=== PATIENT | female | born 1940 | race Caucasian/White ===

== ENCOUNTER 2017-01-12 12:23 | Emergency (ER) | payer OTHER ==
[2017-01-12 12:37] VITALS: BP 155/83; PULSE 72; TEMP 98.2; BMI 21.9
[2017-01-12 12:44] LABS: EOSINOPHIL 1.3 % (0-4.5); MCH 33.5 pg (25.7-33.7); MCHC 34.8 g/dl (32.0-36.0); MEAN CELL VOLUME 96.2 fl (80-96); MEAN PLT VOLUME 8.4 fl (7.5-11.1); NEUTROPHILS 73.3 % (42.8-82.8); PLATELET COUNT 245 K/MM3 (134-434); RDW 12.7 % (11.6-15.6); WHITE BLOOD COUNT 6.6 K/mm3 (4.0-10.8)
[2017-01-12 13:03] LABS: ALBUMIN 4.3 g/dl (3.5-5.0); ALK PHOS 57 U/L (32-92); ANION GAP 8 (8-16); BILIRUBIN,TOTAL 0.6 mg/dl (0.2-1.0); CALCIUM 9.3 mg/dl (8.4-10.2); CO2 25 mmol/L (22-28); CREATININE 0.6 mg/dl (0.6-1.3); GLUCOSE,RANDOM 100 mg/dl (74-106); SGOT/AST 31 U/L (10-42); SGPT/ALT 18 U/L (10-40); TOT PROT 6.8 g/dl (6.4-8.3)
[2017-01-12 13:04] LABS: CPK(DFH) 179 IU/L (26-140)
[2017-01-12 13:05] LABS: COCKROFT - GAULT NT
--- NOTE | 2017-01-12 14:08 | PDOC ---
History of Present Illness <Silver Turner - Last Filed: 01/12/17 14:08> - General History Source: Patient, Family Exam Limitations: No Limitations - History of Present Illness Initial Comments: 01/12/17 14:20 CHIEF COMPLAINT: Syncope with head injury HISTORY OF PRESENT ILLNESS: Patient is a 76-year-old woman who was at home today. She has occasional episodes of swallowing difficulty where things get stuck on the way down. Today she ate a piece of bread that started to get stuck in her esophagus. She went to drink some water to help the food go down, and she started to feel lightheaded. She had a syncopal episode and hit her head on the tile floor. There was a brief transient loss of consciousness. Her daughter is a physician and was present with her. The loss of consciousness was more of a period of confusion for a few seconds. The patient was never unresponsive. She does not take any aspirin and no anticoagulation. She is currently feeling well. She has a slight bump on the back of her head. Her swallowing function is normal. There was no chest pain, shortness of breath , diaphoresis, or vomiting. This has happened to her before with a vagal reaction in the setting of swallowing dysfunction. REVIEW OF SYSTEMS: GENERAL/CONSTITUTIONAL: No fever or chills. No weakness. No weight change. HEAD, EYES, EARS, NOSE AND THROAT: No change in vision. No ear pain or discharge. No sore throat. Positive for lump on the back of the head, but no headache. CARDIOVASCULAR: No chest pain or shortness of breath. Positive history of hypertension. RESPIRATORY: No cough, wheezing, or hemoptysis. GASTROINTESTINAL: No nausea, vomiting, diarrhea or constipation. No rectal bleeding. Has occasional swallowing dysfunction where food gets stuck on the way down. GENITOURINARY: No dysuria, frequency, or change in urination. MUSCULOSKELETAL: No joint or muscle swelling or pain. No neck or back pain. SKIN AND BREASTS: No rash or easy bruising. NEUROLOGIC: No headache, vertigo, loss of consciousness, or loss of sensation. PSYCHIATRIC: No depression or anxiety. ENDOCRINE: No increased thirst. No abnormal weight change. HEMATOLOGIC/LYMPHATIC: No anemia, easy bleeding, or history of blood clots. ALLERGIC/IMMUNOLOGIC: No hives or skin allergy. No latex allergy. <Tj Antonio - Last Filed: 01/12/17 14:28> - General Chief Complaint: Syncope/Near Syncope Stated Complaint: SYNCOPE Time Seen by Provider: 01/12/17 12:25 Past History <Silver Turner - Last Filed: 01/12/17 14:08> - Past Medical History HTN: Yes - Psycho/Social/Smoking Cessation Hx Suicidal Ideation: No Smoking History: Never smoked Hx Alcohol Use: No Drug/Substance Use Hx: No Substance Use Type: None <Tj Antonio - Last Filed: 01/12/17 14:28> - Past Medical History Allergies/Adverse Reactions: Allergies Allergy/AdvReac Type Severity Reaction Status Date / Time No Known Allergies Allergy Verified 01/12/17 12:24 Home Medications: Ambulatory Orders Enalapril Maleate [Vasotec] 10 mg PO DAILY 01/12/17 *Physical Exam - Vital Signs Last Vital Signs Temp Pulse Resp BP Pulse Ox 98.2 F 72 17 155/83 100 01/12/17 12:24 01/12/17 12:24 01/12/17 12:24 01/12/17 12:24 01/12/17 12:24 <Silver Turner - Last Filed: 01/12/17 14:08> - Vital Signs Last Vital Signs Temp Pulse Resp BP Pulse Ox 98.2 F 72 17 155/83 100 01/12/17 12:24 01/12/17 12:24 01/12/17 12:24 01/12/17 12:24 01/12/17 12:24 - Physical Exam Comments: 01/12/17 14:23 GENERAL: The patient is awake, alert, and fully oriented, in no acute distress. HEAD: Scalp with small area of swelling over the mid occiput posteriorly. No abrasions. No laceration. EYES: Pupils equal, round and reactive to light, extraocular movements intact, sclera anicteric, conjunctiva clear. ENT: Ears normal, nares patent, oropharynx clear without exudates. Moist mucous membranes. NECK: Normal range of motion, supple without lymphadenopathy, JVD, or masses. No cervical spine tenderness. No pain on range of motion. LUNGS: Breath sounds equal, clear to auscultation bilaterally. No wheezes, and no crackles. HEART: Regular rate and rhythm, normal S1 and S2 without murmur, rub or gallop. ABDOMEN: Soft, nontender, normoactive bowel sounds. No guarding, no rebound. No masses. EXTREMITIES: Normal range of motion, no edema. No clubbing or cyanosis. No cords, erythema, or tenderness. NEURO: Mental status: The patient is oriented x3. Cranial nerves: Cranial nerves are intact. Motor: The upper extremities are 5 over 5 in all muscle groups. The lower extremities are 5 over 5 in all muscle groups. Sensation: Sensation is intact to light touch throughout. Cerebellar: [id number] is normal in both upper extremities. Reflexes: 2+ and symmetric in the upper and lower extremities. Gait: Normal. PSYCH: Normal mood, normal affect. SKIN: Warm, Dry, normal turgor, no rashes or lesions noted. <Tj Antonio - Last Filed: 01/12/17 14:28> Heart Score/ECG Review - ECG Intrepretation Comment:: 01/12/17 14:25 Twelve-lead EKG shows normal sinus rhythm at a rate of 72 bpm. The axis is normal. The intervals are normal. There are no ST elevations or depressions. There are no abnormal T waves. Impression: Normal 12-lead EKG. <Tj Antonio - Last Filed: 01/12/17 14:28> ED Treatment Course - LABORATORY CBC & Chemistry Diagram: 01/12/17 12:37 01/12/17 12:37 - ADDITIONAL ORDERS Additional order review: Laboratory Results 01/12/17 01/12/17 12:37 12:37 Sodium 137 Potassium 4.4 Chloride 104 Carbon Dioxide 25 Anion Gap 8 BUN 21 H Creatinine 0.6 Creat Clearance w eGFR > 60 Random Glucose 100 Calcium 9.3 Total Bilirubin 0.6 AST 31 ALT 18 Alkaline Phosphatase 57 Creatine Kinase 179 H Total Protein 6.8 Albumin 4.3 01/12/17 12:37 RBC 3.90 MCV 96.2 H MCHC 34.8 RDW 12.7 MPV 8.4 Neutrophils % 73.3 Lymphocytes % 14.1 Monocytes % 10.3 H Eosinophils % 1.3 Basophils % 1.0 - RADIOLOGY Radiology Studies Ordered: 01/12/17 14:08 CHEST PA& LAT Impression: No acute pathology. Suggest direct visualization and an esophagram for more complete evaluation in view of history. Reported by Barrett Soriano HEAD CT WITHOUT CONTRAST Impression: No acute bleed or fracture. No CT evidence of acute infarct Reported by Sebastián Wells <Silver Turner - Last Filed: 01/12/17 14:08> - LABORATORY CBC & Chemistry Diagram: 01/12/17 12:37 01/12/17 12:37 - ADDITIONAL ORDERS Additional order review: Laboratory Results 01/12/17 01/12/17 12:37 12:37 Sodium 137 Potassium 4.4 Chloride 104 Carbon Dioxide 25 Anion Gap 8 BUN 21 H Creatinine 0.6 Creat Clearance w eGFR > 60 Random Glucose 100 Calcium 9.3 Total Bilirubin 0.6 AST 31 ALT 18 Alkaline Phosphatase 57 Creatine Kinase 179 H Total Protein 6.8 Albumin 4.3 01/12/17 12:37 RBC 3.90 MCV 96.2 H MCHC 34.8 RDW 12.7 MPV 8.4 Neutrophils % 73.3 Lymphocytes % 14.1 Monocytes % 10.3 H Eosinophils % 1.3 Basophils % 1.0 - RADIOLOGY Radiology Studies Ordered: Category Date Time Status HEAD CT WITHOUT CONTRAST [CT] Stat CT Scan 01/12/17 12:29 Completed CHEST PA & LAT [RAD] Stat Radiology 01/12/17 12:29 Completed <Tj Antonio - Last Filed: 01/12/17 14:28> Medical Decision Making - Medical Decision Making 01/12/17 14:26 Patient is a 76-year-old woman who presents with a vasovagal syncope episode in the setting of food getting stuck while swallowing. The food went down and she is now drinking water without difficulty. Her daughter who is a physician was concerned because she hit her head with transient loss of consciousness. The vagal episodes are not unusual for her, but the head trauma is not something which has occurred before. On examination, neurological and cardiovascular examination are normal. The remainder of the physical exam is also normal. Patient is awake and alert and fully interactive. She denies any headache. CT scan of the head was negative. Patient does not take aspirin or other anticoagulants. Laboratory Tests 01/12/17 01/12/17 01/12/17 12:37 12:37 12:37 WBC 6.6 RBC 3.90 Hgb 13.1 Hct 37.5 MCV 96.2 H MCHC 34.8 RDW 12.7 Plt Count 245 MPV 8.4 Neutrophils % 73.3 Lymphocytes % 14.1 Monocytes % 10.3 H Eosinophils % 1.3 Basophils % 1.0 Sodium 137 Potassium 4.4 Chloride 104 Carbon Dioxide 25 Anion Gap 8 BUN 21 H Creatinine 0.6 Creat Clearance w eGFR > 60 Random Glucose 100 Calcium 9.3 Total Bilirubin 0.6 AST 31 ALT 18 Alkaline Phosphatase 57 Creatine Kinase 179 H CK-MB (CK-2) 4.2 H Troponin I < 0.03 L Total Protein 6.8 Albumin 4.3 Laboratory studies are all unremarkable. The troponin is negative. The increased CK is likely from the fall. There is no suspicion for an acute cardiac event. Impression: Head trauma with brief loss of consciousness. Skin with scalp contusion. Vasovagal syncope episode. Patient is stable for discharge. <Tj Antonio - Last Filed: 01/12/17 14:28> *DC/Admit/Observation/Transfer - Attestations Scribe Attestion: 01/12/17 14:10 Documentation prepared by Silver Turner, acting as medical practice assistant for Tj Antonio MD <Silver Turner - Last Filed: 01/12/17 14:08> - Discharge Dispostion Admit: No <Tj Antonio - Last Filed: 01/12/17 14:28> Diagnosis at time of Disposition: Scalp contusion Qualifiers: Encounter type: initial encounter Qualified Code(s): S00.03XA - Contusion of scalp, initial encounter - Discharge Dispostion Disposition: HOME Condition at time of disposition: Stable - Patient Instructions Printed Discharge Instructions: DI for Syncope in Adults (Fainting) Additional Instructions: You were evaluated today for passing out and hitting your head. The lab tests and the CT scan of the head were all ok. The chest x-ray was also good. Rest at home for the rest of the day. Follow up with your doctor. Return to the ER for any serious symptoms.
[2017-01-12 14:15] LABS: TROPONIN I (DFP) < 0.03 ng/ml (0.03-0.50)
[2017-01-12 14:16] LABS: CK MB 4.2 ng/ml (0.3-4.0)
--- NOTE | 2017-01-12 16:06 | EKG ---
Test Reason : Blood Pressure : / mmHG Vent. Rate : 072 BPM Atrial Rate : 072 BPM P-R Int : 166 ms QRS Dur : 086 ms QT Int : 394 ms P-R-T Axes : 065 055 038 degrees QTc Int : 431 ms NORMAL SINUS RHYTHM NORMAL ECG NO PREVIOUS ECGS AVAILABLE Confirmed by MIRZA CASAS MD ([id number] on 01/12/2017 4:05:50 PM Referred By: MEL NORTH Confirmed By:MIRZA CASAS MD
== END 2017-01-12 14:29 | disposition home or self-care (01) ==
LOC: FER 12:23
DX: S00.03XA Contusion of scalp, initial encounter (principal); W18.39XA Other fall on same level, initial encounter; Y93.89 Activity, other specified; Y92.9 Unspecified place or not applicable
CPT/HCPCS: 36415; 70450-TC; 71020-TC; 80053; 82550; 82553; 84484; 85025; 93005; 99284-25

== ENCOUNTER → 2021-04-24 | Day surgery (SDC) | payer OTHER, MEDICARE | END | disposition home or self-care (01) | LOC: FRADUS-SUR 11:15 → FRADUS 11:15 → EDSTATUS 11:30 | PROVIDERS: ATTEND Internal Medicine | PROC: 0HBT3ZX Excision of Right Breast, Percutaneous Approach, Diagnostic (ICD-10-PCS; principal; 2021-04-24) | DX: D05.11 Intraductal carcinoma in situ of right breast (principal); N64.89 Other specified disorders of breast; N63.13 Unspecified lump in the right breast, lower outer quadrant | CPT/HCPCS: 19083; 76641-TC-50; 77065-TC; 87899; 88305-TC; 88341-TC; 88342-TC; A4648 ==

== ENCOUNTER 2022-03-29 14:07 | Inpatient (IN) | payer OTHER, MEDICARE ==
[2022-03-29] MEDS ORDERED: SODIUM CHLORIDE 500 ML IV STA (14:47)
[2022-03-29] MEDS ORDERED: METOPROLOL TARTRATE 5 MG/5 ML VIAL IVPUSH ONE ×2 (14:47→15:45)
[2022-03-29 15:00] LABS: INR 1.04 (0.83-1.09)
[2022-03-29 15:01] LABS: HEMATOCRIT 31.7 % (32.4-45.2); HEMOGLOBIN 11.2 G/dL (10.7-15.3); MCH 34.4 pg (25.7-33.7); MCHC 35.4 g/dl (32.0-36.0); MEAN CELL VOLUME 97.3 fl (80-96); MEAN PLT VOLUME 7.9 fl (7.5-11.1); PLATELET COUNT 244.2 10^3/uL (134-434); RBC 3.26 10^6/uL (3.60-5.2); WHITE BLOOD COUNT 5.1 10^3/uL (4.0-10.8)
[2022-03-29 15:03] LABS: ACTIVATED PTT 32.7 SECONDS (25.2-36.5)
[2022-03-29 15:08] LABS: ALBUMIN 3.5 g/dl (3.4-5.0); BILIRUBIN,TOTAL 0.6 mg/dl (0.2-1); CALCIUM 9.4 mg/dl (8.5-10); CREATININE 0.6 mg/dl (0.55-1.3); TOT PROT 6.1 g/dl (6.4-8.2)
[2022-03-29] MEDS ORDERED: METOCLOPRAMIDE HCL INJECTION 10 MG/2 ML VIAL ONE (15:17)
[2022-03-29] MEDS ORDERED: METOPROLOL TARTRATE 25 MG TABLET (FP) PO ONE (15:45)
[2022-03-29] MEDS ORDERED: ACETAMINOPHEN 1000 MG/100 ML BAG IVPB ONE (15:47)
[2022-03-29] MEDS ORDERED: ACETAMINOPHEN INJECTION 100 ML IVPB ONE (15:54)
[2022-03-29] MEDS ORDERED: METOPROLOL TARTRATE 25 MG TABLET (FP) ONE (15:54)
[2022-03-29 16:30] LABS: N-TERMINAL BNP 661.9 pg/ml (5-450)
[2022-03-29 17:58] VITALS: BMI 24.6
[2022-03-29] MEDS: SOTALOL HCL 80 MG TABLET (FP) PO SCH (22:11)
[2022-03-29] MEDS: MELATONIN 5 MG TABLETS PO SCH (22:11)
[2022-03-29] MEDS: APIXABAN 5 MG TABLET PO SCH (22:11)
[2022-03-30 08:28] LABS: MAGNESIUM 2.1 mg/dL (1.8-2.4)
[2022-03-30] MEDS: SOTALOL HCL 80 MG TABLET (FP) PO SCH ×2 (10:02→21:26)
[2022-03-30] MEDS: EZETIMIBE 10 MG TABLET (FP) PO SCH (10:02)
[2022-03-30] MEDS: APIXABAN 5 MG TABLET PO SCH ×2 (10:02→21:26)
[2022-03-30] MEDS: LETROZOLE 2.5 MG TABLET (FP) PO SCH (12:11)
[2022-03-30] MEDS: MELATONIN 5 MG TABLETS PO SCH (21:26)
[2022-03-31] MEDS: APIXABAN 5 MG TABLET PO SCH ×2 (09:07→22:16)
[2022-03-31] MEDS: SOTALOL HCL 80 MG TABLET (FP) PO SCH ×2 (09:07→22:15)
[2022-03-31] MEDS: EZETIMIBE 10 MG TABLET (FP) PO SCH (09:07)
[2022-03-31] MEDS: LETROZOLE 2.5 MG TABLET (FP) PO SCH (09:51)
[2022-03-31] MEDS: MELATONIN 5 MG TABLETS PO SCH (22:16)
[2022-04-01] MEDS: EZETIMIBE 10 MG TABLET (FP) PO SCH (09:01)
[2022-04-01] MEDS: APIXABAN 5 MG TABLET PO SCH ×2 (09:01→22:32)
[2022-04-01] MEDS: SOTALOL HCL 80 MG TABLET (FP) PO SCH ×2 (09:01→22:33)
[2022-04-01] MEDS: LETROZOLE 2.5 MG TABLET (FP) PO SCH (09:01)
[2022-04-01] MEDS ORDERED: ACETAMINOPHEN 325 MG TABLET (FP) PO ONE (22:00)
[2022-04-01] MEDS: MELATONIN 5 MG TABLETS PO SCH (22:33)
[2022-04-02] MEDS: LETROZOLE 2.5 MG TABLET (FP) PO SCH (09:23)
[2022-04-02] MEDS: SOTALOL HCL 80 MG TABLET (FP) PO SCH ×2 (09:24→22:56)
[2022-04-02] MEDS: EZETIMIBE 10 MG TABLET (FP) PO SCH (09:24)
[2022-04-02] MEDS: APIXABAN 5 MG TABLET PO SCH ×2 (09:24→22:41)
[2022-04-02] MEDS ORDERED: GLYCERIN 1 RECTAL SUPPOSITORY, ADULT PR PRN (09:52)
[2022-04-02] MEDS: PSYLLIUM 5.85 GM PACKET PO SCH ×2 (14:18→22:41)
[2022-04-02] MEDS: MELATONIN 5 MG TABLETS PO SCH (22:41)
[2022-04-02] MEDS: GLYCERIN 1 RECTAL SUPPOSITORY, ADULT PR ONE (22:41)
[2022-04-03] MEDS: PSYLLIUM 5.85 GM PACKET PO SCH ×3 (05:54→23:39)
[2022-04-03] MEDS: GLYCERIN 1 RECTAL SUPPOSITORY, ADULT PR ONE (05:54)
[2022-04-03] MEDS: EZETIMIBE 10 MG TABLET (FP) PO SCH (11:02)
[2022-04-03] MEDS: SOTALOL HCL 80 MG TABLET (FP) PO SCH ×2 (11:02→23:39)
[2022-04-03] MEDS: APIXABAN 5 MG TABLET PO SCH (11:02)
[2022-04-03] MEDS: LETROZOLE 2.5 MG TABLET (FP) PO SCH (11:03)
[2022-04-03 13:25] LABS: ALBUMIN 3.6 g/dl (3.4-5.0); CALCIUM 9.4 mg/dL (8.5-10.1)
[2022-04-03 13:26] LABS: BLOOD UREA NITROGEN 14.8 mg/dL (7-18)
[2022-04-03 13:29] LABS: CREATININE 0.7 mg/dL (0.55-1.3); TOT PROT 7.4 g/dl (6.4-8.2)
[2022-04-03 13:30] LABS: BILIRUBIN,TOTAL 0.4 mg/dL (0.2-1)
[2022-04-03] MEDS: MELATONIN 5 MG TABLETS PO SCH (23:39)
[2022-04-04 05:16] VITALS: BP 140/74; PULSE 58; TEMP 98.4
[2022-04-04] MEDS: PSYLLIUM 5.85 GM PACKET PO SCH (05:33)
== END 2022-04-04 05:37 | disposition short-term general hospital (02) | DRG 310 ==
LOC: FER 14:07 → FM/S 16:04 → J4S 20:16
PROVIDERS: ADMIT Internal Medicine; ATTEND Internal Medicine
DX: I49.5 Sick sinus syndrome (principal); I48.0 Paroxysmal atrial fibrillation; I10 Essential (primary) hypertension; Z85.3 Personal history of malignant neoplasm of breast; E78.00 Pure hypercholesterolemia, unspecified
CPT/HCPCS: 36415; 80053; 82550; 83735; 83880; 84443; 84484; 85027; 85610; 85730; 93005; 99285-25; C9803-CS; U0003; U0005